=== PATIENT | female | born 1985 | race Caucasian/White ===

== ENCOUNTER 2021-07-31 10:58 | Day surgery (SDC) | payer BC ==
[~2021-07-31] VITALS: Ht 167.6 cm; Wt 173.4 kg
[2021-07-31] MEDS ORDERED: SAXENDA6 MG/ML SQ (11:55)
[2021-07-31] MEDS ORDERED: VYVANSE70 MG PO (11:56)
[2021-07-31 12:17] VITALS: BP 133/87; PULSE 82; TEMP 97.6
[2021-07-31 13:30] VITALS: BP 124/82; PULSE 92; TEMP 97.3
[2021-07-31 13:45] VITALS: BP 123/87; PULSE 91
--- NOTE | 2021-07-31 13:45 | NUR ---
PATIENT IS ALERT AND ORIENTED. VITAL SIGNS WNL. IV REMOVED. DOCTOR AT BEDSIDE. WILL CONTINUE TO MONITOR.
[2021-07-31 14:00] VITALS: BP 120/82; PULSE 85
--- NOTE | 2021-07-31 14:00 | NUR ---
PATIENT IS READY FOR DISCHARGE. LAST SET OF VITALS ARE WNL. DISCHARGE INSTRUCTIONS REVIEWED WITH PATIENT AND MOTHER. WILL DISCHARGE ONCE SHE GETS DRESSED.
--- NOTE | 2021-07-31 14:00 | NUR ---
PATIENT TO ROOM 7 VIA CART. ASSIST X 1 TO CHAIR. VITALS WNL. WILL CALL MOM TO LET HER KNOW SHE IS ALL DONE. WILL CONTINUE TO MONITOR.
== END 2021-07-31 14:05 | disposition home or self-care (01) ==
LOC: SDCO 10:58
DX: K21.00 Gastro-esophageal reflux disease with esophagitis, without bleeding (principal); K22.89 Other specified disease of esophagus
CPT/HCPCS: J2704; J7120